=== PATIENT | male | born 1945 | race Caucasian/White ===

== ENCOUNTER 2024-06-27 14:00 | Outpatient (RCR) | payer MEDICARE, SELFPAY ==
--- NOTE | 2024-03-30 12:14 | OPREHPOC ---
Outpatient Therapy Plan of Care This is a Multidisciplinary Plan of Care that may contain components documented by all disciplines (PT, OT, and ST.) PT Problem 1 PT Problem #1 Knowledge Deficit PT Goal 1 Goal / Goal Update The patient will be independent in a home exercise program. Target Visit 4 PT Goal 2 Goal / Goal Update The patient will be independent in an advance HEP for strength and balance. Target Visit 18 PT Problem 2 PT Problem #2 Impaired Balance PT Goal 1 Goal / Goal Update 1. The patient will improve his Tinetti Balance Scale score to 19 or higher indicating a moderate fall risk rather than a high fall risk. 2. The patient will improve his TUG time to 15 seconds or less indicating a lower fall risk. Target Visit 18 PT Problem 3 PT Problem #3 Impaired Endurance PT Goal 1 Goal / Goal Update The patient will demonstrate the ability to ambulate 1,000 feet during the 6 minute walk test without a rest break. Target Visit 18 PT Problem 4 PT Problem #4 Impaired Gait PT Goal 1 Goal / Goal Update The patient will demonstrate less right toe drag while ambulating with a straight cane. Target Visit 18
--- NOTE | 2024-03-30 12:14 | PTOPEVAL1 ---
Assessment and note entered by Marcie Schmitt, PT Evaluation Information Assessment Status Evaluation Diagnosis s/p CVA ICD-10 Condition Codes (PT) Weakness R53.1 Other ICD-10 Condition Codes ( I63.9 PT) Onset 03/21/24 Subjective Information Steve Vogel presents with his who relays his history as he has difficulty speaking since his last stroke. She reports he had a stroke in his 40's and was paralyzed on the right side for one week and he gradually regained his strength enough to hike frequently. He had another stroke 7 years ago that caused weakness on the right side that has persisted as well as inability to speak for one week. He had another stroke on 03/21/24 and she knew he was having a stroke because he could not talk. He was taken to [facility] and then transferred to [facility] in [place] where he spent a few days. He also has a history of [place] 10 years ago with stents placed and in December 2022, he had a-fib that caused him to be hospitalized for 4 days. He has been on Eliquis and takes it twice a day to prevent strokes. Since his last stroke, he is starting to be able to talk some and eat more with his right hand. He has been using a cane outside since the stroke 7 years ago and he is now using a cane inside and outside all the time. She reports he is having weakness in the right arm and leg since the last stroke. They live in a 2 story home and they have a chair lift to go upstairs. He has been using the chair lift since his hospitalization in December 2022 . He has a cane and walker at home and uses the walker upstairs in his bedroom and the cane downstairs and when he goes out. There are 4-5 steps to get into the house with handrails on both sides. He has been using the stairs with one hand rail and his cane. His reports he has had no falls or LOB over the last week. His last fall was over a year ago. The patient is denying pain. Reported Pain Level Pain Score 0: Self Report Assessment PT Clinical Summary Steve Vogel presents 9 days s/p CVA. He is having weakness on his right side and difficulty with speech and swallowing. He has had a decline in his ability to ambulate, navigate stairs, and balance. He objectively demonstrates decreased right LE and UE strength, altered gait, decreased dynamic balance, and decreased functional abilities. He currently demonstrates a high fall risk per standard balance tests. He will benefit from skilled PT to improve right UE and LE strength, improve gait, improve balance, improve functional mobility, and decrease his fall risk. Plan of Care Interventions Gait Training,Neuro Re-education,Patient/Caregiver Educati,Therapeutic Activities,Therapeutic Exercise PT Services Indicated Yes Treatment Frequency and 3 times a week for 18 visits Duration These treatments will address the objective and functional deficits as defined above. The patient will be advanced safely and appropriately in order for the patient to progress towards his/her prior level of function. Additional exercises will be introduced and as well as a comprehensive home exercise program upon discharge, if needed, ?to ensure carryover of functional gains achieved in the clinic. This treatment plan has been reviewed and agreement upon by the patient.
--- NOTE | 2024-04-18 14:17 | BUSTOPEVAL1 ---
Assessment and note entered by Kelsea Bess SCIENTIST Evaluation Information Assessment Status Evaluation Reported Pain Level Pain Score 0: Self Report Pain Score 3: Self Report Pain Score 0: Self Report Pain Score 0: Self Report Pain Score 0: Self Report Pain Score 0: Self Report Pain Score 0: Self Report Pain Score 0: Self Report Pain Score 0: Self Report Assessment ST Clinical Summary Patient was referred for a skilled ST evaluation after recent CVA on March 21, 2024 resulting in difficulty swallowing and cognitive-communication deficits. Patient and spouse reported that since the CVA patient has had difficulty with his swallowing, experiences frequent drooling, difficulty with word retrieval, slurred speech and difficulty with memory. Spouse reported that within the past week or so the patient has shown improvements in swallowing skills along with word finding and speech. Through patient report, clinical observation and testing patient currently presents with moderate dysphagia and mild aspiration risk for MASA testing with a score of 162. Through use of SLUMS testing patient presents with a mild neurocognitive disorder with a score of 24/30. Patient presented with difficulty recalling 5 words with delay in presentation, stating numbers in reverse order, and recalling information from a paragraph read with immediate recall. Language testing was completed with difficulties noted in complex yes/no questions, moderate and complex paragraph retention, reading comprehension at the complex sentence level and simple/moderate paragraph level, confrontational naming with low frequency words, and sentence formation with target word. Through conversation during the evaluation the patient presented with slurred speech, difficulty with word retrieval, and difficulty in recalling recent events. Recommendation for skilled ST treatment to target dysphagia oral phase R13.11 and R47.01 aphasia to improve patient's swallowing function to decrease risk for aspiration and improve patient's cognitive-communication skills to function as independent and safely as he can tolerate. Recommendation for skilled ST 1x/week for 10 visits. Plan of Care Interventions Treatment of Speech,Treatment of Language, Treatment of Swallowing D Treatment Frequency and 1x/week for 10 visits Duration These treatments will address the objective and functional deficits as defined above. The patient will be advanced safely and appropriately in order for the patient to progress towards his/her prior level of function. Additional exercises will be introduced and as well as a comprehensive home exercise program upon discharge, if needed, ?to ensure carryover of functional gains achieved in the clinic. This treatment plan has been reviewed and agreement upon by the patient.
--- NOTE | 2024-04-21 12:06 | OPREHPOC ---
Outpatient Therapy Plan of Care This is a Multidisciplinary Plan of Care that may contain components documented by all disciplines (PT, OT, and ST.) PT Problem 1 PT Problem #1 Knowledge Deficit PT Goal 1 Goal / Goal Update The patient will be independent in a home exercise program. Target Visit 4 Progress Met PT Goal 2 Goal / Goal Update The patient will be independent in an advance HEP for strength and balance. Target Visit 18 PT Problem 2 PT Problem #2 Impaired Balance PT Goal 1 Goal / Goal Update 1. The patient will improve his Tinetti Balance Scale score to 19 or higher indicating a moderate fall risk rather than a high fall risk. 2. The patient will improve his TUG time to 15 seconds or less indicating a lower fall risk. met Target Visit 18 Progress Partially Met PT Problem 3 PT Problem #3 Impaired Endurance PT Goal 1 Goal / Goal Update The patient will demonstrate the ability to ambulate 1,000 feet during the 6 minute walk test without a rest break. Target Visit 18 Progress Not Met PT Problem 4 PT Problem #4 Impaired Gait PT Goal 1 Goal / Goal Update The patient will demonstrate less right toe drag while ambulating with a straight cane. Target Visit 18 Progress Not Met
--- NOTE | 2024-04-21 12:06 | PTOPPROGNS ---
Assessment and note entered by JT File, PT Evaluation Information Assessment Status Progress Diagnosis s/p CVA ICD-10 Condition Codes (PT) Weakness R53.1 Other ICD-10 Condition Codes ( I63.9 PT) Onset 03/21/24 Subjective Information patient reports he feels good today. he reports no pain in the R LE. he reports he has had no falls. he reports he is doing his exercises at home. Assessment PT Clinical Summary mr. lester presents to skilled PT for his 10th skilled therapy visit after CVA. he presents today with improvement in ambulation efficiency, but continues to drag/catch the R toe at times. he does display improvement of his balance per the TUG test today. continued skilled PT is indicated to continue to improve his balance, safety, strength, and ambulation efficiency to achieve all goals and return to prior level functional activity performance. Plan of Care Interventions Gait Training,Neuro Re-education,Patient/Caregiver Educati,Therapeutic Activities,Therapeutic Exercise PT Services Indicated Yes Treatment Frequency and continue per initial POC Duration These treatments will address the objective and functional deficits as defined above. The patient will be advanced safely and appropriately in order for the patient to progress towards his/her prior level of function. Additional exercises will be introduced and as well as a comprehensive home exercise program upon discharge, if needed, ?to ensure carryover of functional gains achieved in the clinic. This treatment plan has been reviewed and agreement upon by the patient.
--- NOTE | 2024-05-16 13:55 | OPREHPOC ---
Outpatient Therapy Plan of Care This is a Multidisciplinary Plan of Care that may contain components documented by all disciplines (PT, OT, and ST.) PT Problem 1 PT Problem #1 Knowledge Deficit PT Goal 1 Goal / Goal Update The patient will be independent in a home exercise program. Target Visit 4 Progress Met PT Goal 2 Goal / Goal Update The patient will be independent in an advance HEP for strength and balance. Target Visit 18 Progress Met PT Problem 2 PT Problem #2 Impaired Balance PT Goal 1 Goal / Goal Update 1. The patient will improve his Tinetti Balance Scale score to 19 or higher indicating a moderate fall risk rather than a high fall risk. met 2. The patient will improve his TUG time to 15 seconds or less indicating a lower fall risk. met Target Visit 18 Progress Met PT Problem 3 PT Problem #3 Impaired Endurance PT Goal 1 Goal / Goal Update The patient will demonstrate the ability to ambulate 1,000 feet during the 6 minute walk test without a rest break. not met Target Visit 18 Progress Not Met PT Problem 4 PT Problem #4 Impaired Gait PT Goal 1 Goal / Goal Update The patient will demonstrate less right toe drag while ambulating with a straight cane. Target Visit 18 Progress Met
--- NOTE | 2024-05-16 13:56 | PTOPDC ---
Assessment and note entered by JT File, PT Evaluation Information Assessment Status Discharge Diagnosis s/p CVA ICD-10 Condition Codes (PT) Weakness R53.1 Other ICD-10 Condition Codes ( I63.9 PT) Onset 03/21/24 Subjective Information patient reports he feels good today. he reports he has had no falls. he reports he has no pain. he reports he uses the cane to ambulate. he reports he feels he does not have much issues with his walking or balance any more, but is going to continue speech therapy. Reported Pain Level Pain Score 0: Self Report Assessment PT Clinical Summary mr. lester is a 78 yo man who presents to skilled PT services for his 18th skilled PT visit. he has met all goals for skilled PT, except for ambulation distance during 6 minute walk test. he would benefit from continuing with an HEP, and was educated to attend 2x weekly fall prevention class. he will be DC'd from skilled PT today. Plan of Care PT Services Indicated Yes
--- NOTE | 2024-06-27 17:49 | STOPPROG ---
Assessment and note entered by Kelsea Bess, EMPLOYEE RELATIONS SPECIALIST Evaluation Information Assessment Status Progress Diagnosis R47.01 aphasia ICD-10 Condition Codes (ST) I69.320,I69.82 Onset 03-21-24 Subjective Information Patient was referred for a skilled ST evaluation due to a CVA on 03-21-24 impacting his swallowing abilities and cognitive-communication skills. Patient initially had difficulty with his swallowing with frequent right side pocketing and anterior loss of fluids. Over the past 10 sessions patient has shown improvements in skills with goals being met at this time. Patient reported that he is doing much better with his swallowing abilities and has no difficulty at this time. Patient has completed a total of [address] treatment sessions for the treatment of aphasia. Patient continues to show improvements in overall skills but continues to struggle with word finding skills along with short term memory skills impacting his ability to return to PLOF with least amount of assistance. Assessment ST Clinical Summary Patient was referred for a skilled ST evaluation after recent CVA on March 21, 2024 resulting in difficulty swallowing and cognitive-communication deficits. Over the course of [address] treatment sessions the patient has participated with ST to target dysphagia with noted improvements and all goals met at this time. Patient reported that he is tolerating meals well with no noted pocketing or anterior loss. Through use of SLUMS testing patient presents with a mild neurocognitive disorder with a score of 23/30 ( mild neurocognitive disorder). Patient presented with difficulty recalling 5 words with delay in presentation and recalling information from a paragraph read with immediate recall. Language testing was completed with difficulties noted in producing a sentence with a given target word ( level 2 difficulty), higher level confrontational naming, divergent naming (named 13 items), and mild word retrieval difficulties noted within connected speech task through picture description. Patient reported that he continued to note improvements in speech skills but continues to struggle to find the words he wants to say resulting in frequent frustration. Cognitive testing was completed during the session with deficits noted in; recent memory, through organization through sequencing, sorting/ categorizing, and functional mathematical skills. Recommendation for skilled ST treatment to continue to target R47.01 aphasia to improve patient's cognitive-communication skills to function as independent and safely as possible with reduced frustration in communication breakdowns. Recommendation for skilled ST 1x/week for 10 visits. Plan of Care Interventions Treatment of Speech,Treatment of Language ST Services Indicated Yes Treatment Frequency and 1x/week for 10 visits Duration These treatments will address the objective and functional deficits as defined above. The patient will be advanced safely and appropriately in order for the patient to progress towards his/her prior level of function. Additional exercises will be introduced and as well as a comprehensive home exercise program upon discharge, if needed, ?to ensure carryover of functional gains achieved in the clinic. This treatment plan has been reviewed and agreement upon by the patient.
== END 2024-06-28 23:59 | disposition home or self-care (01) ==
LOC: CHSST 14:00
DX: I63.9 Cerebral infarction, unspecified (principal); R53.1 Weakness; R13.10 Dysphagia, unspecified
CPT/HCPCS: 92507; 92523; 92526; 92610; 97110; 97112; 97161; 97530; 97750

== ENCOUNTER 2024-09-28 09:45 | Outpatient (RCR) | payer MEDICARE, SELFPAY ==
--- NOTE | 2024-07-04 16:40 | PCSTNOTE ---
The treatment documented on this account is a continuation of the treatment documented on visit number [id number]. Please see documentation on both accounts to view progress. The Plan of Care has been transitioned and updated within the new A#. I have addressed and agree with the discipline specific Problems, Interventions, and Goals for the current certification period. Completed interventions, outcomes, and problems have been marked as Inactive to facilitate the copying of the Care plan routine for recurring accounts.
--- NOTE | 2024-08-08 11:46 | PCSTNOTE ---
Patient called & cancelled scheduled appointment this date due to inclement weather.
--- NOTE | 2024-09-28 12:55 | BUSTOPDC ---
Assessment and note entered by Kelsea Bess, COMPRESSED GASES TESTER Evaluation Information Assessment Status Discharge Diagnosis R47.01 aphasia ICD-10 Condition Codes (ST) Aphasia following cerebral infarction: I69.320, Speech & language deficits following other cerebrovasc disease I69.82 Subjective Information Patient was referred for a skilled ST evaluation due to a CVA on 03-21-24 impacting his swallowing abilities and cognitive-communication skills. Patient initially had difficulty with his swallowing with frequent right side pocketing and anterior loss of fluids. Over the past 10 sessions patient had shown improvements in skills with goals being met at that time. Patient reported that he is doing much better with his swallowing abilities and has no difficulty at this time. Patient has completed a total of [address] treatment sessions for the treatment of aphasia since the initial evaluation. Patient reported that he continues to see improvements in his memory and word finding skills but feels he is not quite at his PLOF at this time. He reported that he will continue to target skills at home to improve verbal expression skills and short term memory. Patient is ready for discharge from skilled ST treatment at this time. Reported Pain Level Pain Score 7: Self Report Pain Score 0: Self Report Pain Score 0: Self Report Pain Score 0: Self Report Pain Score 0: Self Report Pain Score 0: Self Report Pain Score 0: Self Report Pain Score 0: Self Report Pain Score 0: Self Report Pain Score 0: Self Report Pain Score 0: Self Report Assessment ST Clinical Summary Patient was referred for a skilled ST evaluation after recent CVA on March 21, 2024 resulting in difficulty swallowing and cognitive-communication deficits. Over the course of [address] treatment sessions the patient participated with ST to target dysphagia with noted improvements and all goals met. Patient reported that he is tolerating meals well with no noted pocketing or anterior loss. Through use of SLUMS testing patient presents with a mild neurocognitive disorder with a score of 23/30 (mild neurocognitive disorder on 06-27-24). SLUMS was re administered during the session on 09-28-24 with a score of 24/30. Patient continues to demonstrate difficulty in areas of short term memory skills, divergent naming and some problem solving skills for more complex tasks. Language testing was completed on 06-27-24 with difficulties noted in producing a sentence with a given target word ( level 2 difficulty), higher level confrontational naming, divergent naming (named 13 items), and mild word retrieval difficulties noted within connected speech task through picture description. Patient reported that he continues to note improvements in speech skills but continues to struggle to find the words he wants to say. Cognitive testing was completed on 06-27-24 with deficits noted in; recent memory, through organization through sequencing, sorting/ categorizing, and functional mathematical skills. Patient recently has met goals for speech intelligibility at the complex word and sentence level along with goals for comprehension of complex statements and production of a sentence with a given oglesby target word. Patient is happy with the progress he has made over the course of [address] sessions completed. At this time patient is ready for discharge and a packet of various activities were sent home this date. Plan of Care Treatment Frequency and Discharged from skilled ST at this time. Duration
== END 2024-09-28 16:51 | disposition home or self-care (01) ==
LOC: CHSST 09:45
DX: I63.9 Cerebral infarction, unspecified (principal); R53.1 Weakness; R13.10 Dysphagia, unspecified
CPT/HCPCS: 92507